=== PATIENT | male | born 1980 | race Caucasian/White ===

== ENCOUNTER 2021-04-05 06:37 | Emergency (ER) | payer BC | END 2021-04-05 08:45 | disposition home or self-care (01) | LOC: ER1 06:37 | DX: U07.1 COVID-19 (principal) | CPT/HCPCS: 99283; U0002 ==

== ENCOUNTER 2021-04-17 09:33 | Inpatient (IN) | payer BC ==
[~2021-04-17] VITALS: Ht 170.2 cm; Wt 135.2 kg
[2021-04-17 11:31] LABS: HEMOGLOBIN 13.8 gm/dl (14.0-17.5); RED BLOOD COUNT 4.91 M/UL (4.20-5.50); WHITE BLOOD COUNT 9.4 K/UL (4.5-11.0)
[2021-04-17 12:42] LABS: BUN/CREATININE RATIO 12 (0-10)
[2021-04-17] MEDS ORDERED: HYDROXYZINE HCL25 MG PO (15:37)
[2021-04-17] MEDS ORDERED: LISINOPRIL10 MG PO (15:37)
[2021-04-17] MEDS ORDERED: VITAMIN C500 M4 PO (15:38)
[2021-04-17] MEDS ORDERED: PAROXETINE HCL20 MG PO (15:38)
[2021-04-17] MEDS ORDERED: ZINC50 M1 PO (15:38)
[2021-04-17] MEDS ORDERED: VITAMIN D250 MCG PO (15:39)
[2021-04-18 03:52] LABS: HEMOGLOBIN 13.5 gm/dl (14.0-17.5); RED BLOOD COUNT 4.77 M/UL (4.20-5.50); WHITE BLOOD COUNT 7.9 K/UL (4.5-11.0)
[2021-04-18 04:39] LABS: BUN/CREATININE RATIO 11 (0-10)
[2021-04-19 04:28] LABS: HEMOGLOBIN 13.8 gm/dl (14.0-17.5); RED BLOOD COUNT 4.82 M/UL (4.20-5.50)
[2021-04-19 04:30] LABS: WHITE BLOOD COUNT 13.7 K/UL (4.5-11.0)
[2021-04-19 04:54] LABS: BUN/CREATININE RATIO 17 (0-10)
[2021-04-20 08:04] LABS: HEMOGLOBIN 13.2 gm/dl (14.0-17.5); RED BLOOD COUNT 4.57 M/UL (4.20-5.50)
[2021-04-20 08:09] LABS: WHITE BLOOD COUNT 9.5 K/UL (4.5-11.0)
[2021-04-20 08:16] LABS: BUN/CREATININE RATIO 18 (0-10)
[2021-04-21 08:14] LABS: RED BLOOD COUNT 4.45 M/UL (4.20-5.50); WHITE BLOOD COUNT 8.3 K/UL (4.5-11.0)
[2021-04-21 08:37] LABS: BUN/CREATININE RATIO 13 (0-10)
[2021-04-21] MEDS ORDERED: ELIQUIS5 MG PO (12:53)
[2021-04-21] MEDS ORDERED: DECADRON6 MG PO (12:53)
== END 2021-04-21 15:33 | disposition home or self-care (01) | DRG 177 ==
LOC: ER1 09:33 → CDU 14:01 → MED SURG 4 04-19 16:05
PROVIDERS: Physician Assistant Medical; ADMIT Internal Medicine
PROC: XW033E5 Introduction of Remdesivir Anti-infective into Peripheral Vein, Percutaneous Approach, New Technology Group 5 (ICD-10-PCS; principal; 2021-04-17)
PROC: 3E0333Z Introduction of Anti-inflammatory into Peripheral Vein, Percutaneous Approach (ICD-10-PCS; 2021-04-17)
PROC: 8E0ZXY6 Isolation (ICD-10-PCS; 2021-04-17)
PROC: 3E02340 Introduction of Influenza Vaccine into Muscle, Percutaneous Approach (ICD-10-PCS; 2021-04-19)
DX: U07.1 COVID-19 (principal); J12.82 Pneumonia due to coronavirus disease 2019; J96.01 Acute respiratory failure with hypoxia; I10 Essential (primary) hypertension; F41.9 Anxiety disorder, unspecified; Z98.890 Other specified postprocedural states; Z23 Encounter for immunization
CPT/HCPCS: 36415; 36600; 71045; 80048; 80053; 82803; 83605; 83615; 83735; 83880; 85025; 85027; 85379; 86140; 87040; 93005; 94640; 94664; 94760; 99285; J0696; J1100; J1650; J7030; U0002